=== PATIENT | female | born 1965 | race Caucasian/White ===

== ENCOUNTER 2023-02-16 10:39 | Outpatient (OUT) | payer BC, SELFPAY ==
[2023-02-16 11:17] LABS: Basophils Percent Auto 0.4 % (0.2-2.0); Eosinophils Absolute Auto 0.1 10^3/uL (0.0-0.7); Eosinophils Percent Auto 1.5 % (0.9-7.0); Hematocrit 39.9 % (36.0-48.0); Hemoglobin 13.3 g/dL (12.0-16.0); Immature Granulocytes Abs Auto 0.01 10^3/uL (0.00-0.03); Immature Granulocytes Pct Auto 0.2 % (0.0-0.5); Lymphocytes Absolute Auto 2.2 10^3/uL (1.2-3.8); Lymphocytes Percent Auto 46.5 % (20.5-60.0); Mean Corpuscular HGB Conc 33.3 g/dL (29.9-35.2); Mean Corpuscular Hemoglobin 31.1 pg (26.7-34.0); Mean Corpuscular Volume 93.4 fL (81.0-99.0); Monocytes Absolute Auto 0.3 10^3/uL (0.3-0.8); Monocytes Percent Auto 5.9 % (1.7-12.0); Neutrophils Absolute Auto 2.2 10^3/uL (1.4-6.5); Neutrophils Percent Auto 45.5 % (43.0-75.0); Platelet Count 182 10^3/uL (150-450); Red Blood Count 4.27 10^6/uL (4.20-5.40); Red Cell Distribution Width 12.7 % (11.0-15.0); White Blood Count 4.8 10^3/uL (4.0-11.0)
[2023-02-16 11:32] LABS: Estimated Average Glucose 114 mg/dL; Glycohemoglobin A1C 5.6 % (4.5-6.2)
[2023-02-16 12:15] LABS: Alanine Aminotransferase 22 U/L (14-59); Albumin Globulin Ratio 1.2; Alkaline Phosphatase 88 U/L (46-116); Aspartate Amino Transferase 16 U/L (15-37); BUN Creatinine Ratio 15.4; Bilirubin Total 0.4 mg/dL (0.2-1.0); Calcium 9.1 mg/dL (8.5-10.1); Carbon Dioxide 28.6 mmol/L (21.0-32.0); Chloride 105 mmol/L (98-107); Chol HDL Ratio 2.9; Cholesterol 235 mg/dL (<=200); Estimated GFR (African America >60 (>=60); Estimated GFR (Non-African Ame >60 (>=60); Free T3 2.39 pg/mL (2.18-3.98); Globulin 3.3 g/dL; Glucose 98 mg/dL (74-106); HDL Cholesterol 82 mg/dL (40-60); Potassium 4.6 mmol/L (3.5-5.1); Sodium 141 mmol/L (136-145); Thyroid Stimulating Hormone 1.231 uIU/mL (0.358-3.740); Total Protein 7.3 g/dL (6.4-8.2); Triglycerides 75 mg/dL (<=150)
== END 2023-02-16 10:40 | disposition home or self-care (01) ==
PROVIDERS: Visit Provider Family Medicine
DX: Z00.00 Encounter for general adult medical examination without abnormal findings (principal)
CPT/HCPCS: 36415; 80053; 80061; 83036; 83540; 84436; 84443; 84481; 85025

== ENCOUNTER 2023-04-17 13:39 | Outpatient (OUT) | payer BC, SELFPAY | END 2023-04-17 13:40 | disposition home or self-care (01) | LOC: PST 13:40 | PROVIDERS: Visit Provider Surgery | DX: Z01.818 Encounter for other preprocedural examination (principal); Z12.11 Encounter for screening for malignant neoplasm of colon ==

== ENCOUNTER 2023-04-25 07:27 | Day surgery (SDC) | payer BC, SELFPAY ==
--- NOTE | 2023-04-25 | OP_ITS ---
OPERATION DATE: ??04/25/2023 PREOPERATIVE DIAGNOSIS:? Colorectal screening. POSTOPERATIVE DIAGNOSIS:? Normal colonoscopy to cecum. PROCEDURE:? Colonoscopy to cecum. SURGEON:? Taurus Bridges M.D. ANESTHESIA:? Monitored anesthesia care. ESTIMATED BLOOD LOSS:? Zero. INDICATIONS AND CONSENT:? Patient is a 57-year-old female presents for colorectal screening.? Indications, risks, benefits, alternatives of proceeding with colonoscopy were explained extensively to the patient, including the risks of bleeding, colon perforation or anesthetic complications.? All of her questions were answered.? Informed consent was obtained. PROCEDURE:? Patient brought to the operating room, placed in the left lateral decubitus position.? Monitored anesthesia care was provided.? Rectal exam was performed which showed no masses or blood.? The scope was inserted into the anal canal.? Under direct visualization was advanced.? With the aid of abdominal compression, it was advanced to the cecum where cecal markings were clearly identified.? There was noted to be a good prep.? Upon withdrawal of the scope, mucosal surfaces were carefully examined.? There were no mass lesions or polyps.? No inflammatory changes or ulcerations.? No significant diverticulosis.? The scope was retroflexed in the anal canal.? There was no significant hemorrhoidal disease.? Scope was then withdrawn.? Patient tolerated procedure well, was sent to recovery room in good condition. Follow up colonoscopy should be in 10 years for screening. CC:? Ron Flynn M.D. MTDLuz
[2023-04-25 07:40] VITALS: BP 107/48; PULSE 78; RESP 16; TEMP 36.4; O2SAT 97; BMI 22.9
[2023-04-25] MEDS: LACTATED RINGER'S SOLUTION 1,000 ML 50 ML IV (07:47)
[2023-04-25 08:25] VITALS: BP 99/59; PULSE 71; RESP 14; TEMP 35.9; O2SAT 99
[2023-04-25 08:40] VITALS: BP 98/56; PULSE 70; RESP 16; O2SAT 97
[2023-04-25] MEDS: ONDANSETRON PF 4 MG/2 ML VIAL IV (08:43)
--- NOTE | 2023-04-25 08:50 | PC.NURSE ---
pt reports nausea at this time, notified,order received for 4mg IV zofran. will administer once pharmacy verifies order.
--- NOTE | 2023-04-25 08:51 | PC.NURSE ---
4mg IV zofran given at 0843 for nausea per order.
[2023-04-25 08:55] VITALS: BP 106/70; PULSE 72; RESP 16; O2SAT 99
== END 2023-04-25 09:10 | disposition home or self-care (01) ==
PROVIDERS: PCP Family Medicine; Visit Provider Surgery
PROC: (CPT 45378; principal; 2023-04-25 08:30)
DX: Z12.11 Encounter for screening for malignant neoplasm of colon (principal); M85.80 Other specified disorders of bone density and structure, unspecified site; D89.89 Other specified disorders involving the immune mechanism, not elsewhere classified
CPT/HCPCS: 45378; J2704

== ENCOUNTER 2025-07-29 08:02 | Outpatient (OUT) | payer BC, SELFPAY ==
--- OUTSIDE RECORDS SUMMARY | 2025-07-15 08:30 | XMS_ITS ---
Author Organization [facility] [place] Address [address] [place] [address] Care Team Providers Care Gas Main Fitter Name Role Phone David Flynn Primary Care Provider Allergies No Known Allergies REASON FOR VISIT ANNUAL Social History Tobacco Use: Social History Observation Description Date Details (start date - stop date) Never Smoker NA - NA Tobacco Use/Smoking Question Answer Notes Patient is a nonsmoker AUDIT-C (Standard) Question Answer Notes Did you have a drink containing alcohol in the p ast year? Yes How often did you have a drink containing alcohol in the past year?Never (0 point)How many drinks did you have on a typical day when you were drinking in the past year?1 or 2 drinks (0 point)How often did you have six or more drinks on one occasion in the past year?2 to 4 times a month (2 points)Points2 InterpretationNegative Problems Problem Type SNOMED Code ICD Code Onset Dates Problem Status W/U Status Risk Notes Problem Scoliosis (179545838) Scoliosis (M41.9) Activeconfirmed Vital Signs Weight 138.0 lbs 07/15/2025 Height 62 in 07/15/2025 Blood pressure systolic 118 mm Hg 07/15/20 25 Blood pressure diastolic 72 mm Hg 025 BMI 25.24 kg/m2 07/15/2025 Encounters Encounter Location Date Provider Diagnosis [facility] [address] [place] [address] 07/15/2025 David Fylnn Well adult Z00.00 an d Scoliosis M41.9 Assessments Encounter Date Diagnosis (ICD Code) Assessment Notes Treatment Notes Treatment Clinical Notes Section Notes 07/15/2025 Well adult (ICD-10 - Z00.00) 07/15/2025Scoliosis (ICD-10 - M41.9) Plan Of Treatment Pending Test Test Name Order Date HEMOGLOBIN A1C (GLYCO) 07/15/2025 IRON, TOTAL 07/15/2025 LIPID PANEL (CHOL/TRIG/HDL/LDL) 07/15/20 25 XR DEXA BONE DENSITY 07/15/2025 XR LSPINE MIN 4 VIEWS 07/15/2025 THYROID PANEL (T4/TSH/FREE T3) 5 MM screening mammo BI 07/15/2025 XR thoracic spine 3V 07/15/2025 CMP (COMP MET GREEN) w/eGFR CKD-EPI 2024 CBC WITH DIFF 07/15/2025 Progress Notes * Jia BREWSTER LDOB:1964 (60 yo F)Acc No.[id number]:07/15/2025 Progress Note Patient: Jia HERNANDEZ :?Ron Flynn ([facility]), MDDOB:1965???Age: 60 Y???Sex:FemaleDate:07/15/2025Phone:[phone]:[address] [place], [place]Check In:01:18 PM ESTCheck Out:02:09 PM EST Subjective: * Chief Complaints: * A NNUAL * HPI: ???General:? arthritis acting up from time to time feels better after moenpause actually Has bowle and bladder prolapse. * ROS: ???EENT:?hearing changes?denies.?visual changes?denies. non-healing mouth sores?denies.?swollen glands or neck lumps?denies.?hoarseness?denies.?sore throat?denies.?difficulty swallowing?denies.?nose bleeds?denies.?nasal congestion?denies.?ear ache?denies.?ear discharge denies.?ringing in ears?denies.?light sensitivity?denies.?eye pain?denies.?blurring?denies.?eye irritation?denies.?double vision?denies. vision loss?denies.?General/Constitutional:?Sweats:?Denies.?Fatigue?denies.?Sleep proble ms?denies.?Anorexia?denies.?Malaise?denies.?Weight loss?denies. Fatigue or Weakness?denies.?Fever or Chills?denies.?Cardiovascular:?Shortness of Breath w/lying flat?denies.?Lightheadedne ss/dizziness?denies.?Chest tightness/ heavy pressure?denies.?Swelling of legs, a nkles, or feet?denies.?Waking up with shortness of breath?denies.?Chest pain&#16 0;denies.?Palpitations?denies.?Weight gain?denies.?Respiratory:?Chronic or frequent cough?denies.?Coughing up blood&#1 60;denies.?Difficulty breathing?denies.?Productive cough?denies.?Snoring&#1 60;denies.?Shortness of breath that awakens from sleep (PND)?denies.?Chest pain? denies.?Sputum production?denies.?Wheezing?denies.?Musculoskeletal:?Joint pain?denies.?Joint Fluid?denies.?Backpain?denies.?Knee pain?denies.?Neck pain?denies.?Joint Stiffness?denies.?Muscle cramps?denies.?Weakness of muscles?denies.?Arthritis?denies.?Muscle aches?denies.?Pain in shoulder(s)?denies.?Swollen joints?denies.? * Active Problem List M85.80 Osteopenia Modified On:02/08/2023W/U Status:sxdultyvzY16.8Varicose vein Modified On:02/08/2023/U Status:ivdieslctT70.89Autoimmune disease Modified On:06/29/2023W/U Status:dcnhkjngfK35.00Well adult Modified On:11/01/2023W/U Status:ofucfugfuK15.1COVID-19 Modified On:04/09/2023W/U Status:rtievbwtgR62.90Acute sinus infection Modified On:11/22/2023W/U Status:yaihwjdetO57.9Scoliosis Modified On:07/15/2025W/U Status:confirmed * Medical History: * Surgical History: L ipoma on right leg and left hip * Hospitalization/Major Diagno stic Procedure: D enies Past Hospitalization * Family History: F ather: alive, Non Hodgkins lymphoma, Pacemaker. M other: alive, neuropathy, diagnosed with Diabetes. M aternal uncle: alive, colon cancer, diagnosed with Cancer. * Social History: ???Tobacco Use:?Tobacco Use/Smoking?Patient is a?nonsmoker ???Drug/Alcohol:?AUDIT-C (Standard)?Did you have a drink containing alcohol in the past year??Yes ?How often did you have a drink containing alcohol in the past year?? Never (0 point) ?How many drinks did you have on a typical daywhen you were drinking in the past year??1 or 2 drinks (0 point) ?How often did you have six or more drinks on one occasion in the past year??2 to 4 times a month (2 points) ?Points?2 ?Interpretation?Negative * Medications: D iscontinuedlevoFLOXacin 500 MG Tablet 1 tablet Orally Once a day Medication List reviewed and reconciled with the patientDiscontinued levoFLOXacin 500 MG Tablet 1 tablet Orally Once a day Medication List reviewed and reconciled with the patient * Allergies: N .K.D.A.no[Allergies Verified] Objective: * Vitals: W t:138.0lbs, Ht: 62 in, BP:118/72mm Hg, BMI:25.24Index, Ht-cm: 157.48 cm, Wt-k.6 kg. * Examination: ???Physical Exam: ?GENERAL:?well developed, well nourished, in no acute distress.?HEAD:?normocephalic/atraumatic.?EYES:?pupils equal, round and reactive to light, conjunctivae and sclerae normal.?EARS:?no deformity or lesion of external ear, canals and TM appear normal bilaterally, TM's intact, not inflamed with normal light reflex, hearing grossly normal to conversational speech.?NOSE:?no deformity, discharge, inflammation, or lesions. ?MOUTH:?mucous membranes moist, normal oropharynx and posterior pharynx without lesions or exudates, tongue normal, dentition normal.?NECK:?neck supple, no masses or palpable cervical nodes, trachea midline, thyroid without nodules, masses, tenderness, or enlargement.?CHEST:?no chest wall deformity, no chest wall tenderness. ?LUNGS:?normal respiratory effort and clear to auscultation, no wheezes, rales, or rhonchi, good air exchange.?CARDIO:?regular rate and rhythm, normal S1 and S2, nor murmur, rub, or gallop.?PULSES:?normal capillary refill.?ABDOMEN:?soft, non-distended, non-tender, no masses.?MUSCULOSKELETAL:?no deformity or scoliosis noted, normal range of motion, joints normal, no erythema, edema, effusion, or ecchymosis.?EXTREMITY:?no clubbing, cyanosis, edema, or deformity withnormal ROM in both upper and lower bilateral extremities.?NEUROLOGIC:?grossly normal.?SKIN:?no rashes, ulcerations, or suspicious lesions.?LYMPH NODES:?no cervical adenopathy, nodes normal.?MENTAL STATUS:?alert and oriented x3, normal mood and affect.? Assessment: * Assessment: 1.?Well adult - Z00.00 (Primary)???2.?Scoliosis - M41.9??? Plan: * Treatment: ?LAB: HEMOGLOBIN A1C (GLYCO) ?LAB: IRON, TOTAL ?LAB: LIPID PANEL (CHOL/TRIG/HDL/LDL) ?LAB: THYROID PANEL (T4/TSH/FREE T3) ?LAB: CMP (COMP MET GREEN) w/eGFR CKD-EPI ?LAB: CBC WITH DIFF ?Imaging: XR DEXA BONE DENSITY ?Imaging: XR LSPINE MIN 4 VIEWS ?Imaging: MM screening mammo BI ?Imaging: XR thoracic spine 3V * Procedure Codes: * Preventive Medicine: ??Screenings/Counseling:?BMI ACTION PLAN?Above Normal BMI Follow-up?Dietary management education, guidance, and counseling * * Sign off status: CompletedVisit Status:?CHK (Check Out) true * Provider: Luz Flynn (TTC)MD Date: 09/15/2024 Generated for Printing/Faxing/eTransmitting on:?07/29/2025 08:04 AM EST History and Physical Notes * HPI (History of Present Illness) CategorySub-CategoryDetailNotesCategory NotesGeneral arthritis acting up from time to time feels better after moenpause actually Has bowle and bladder prolapse Examination CategorySub-CategoryDetailNotesCategory NotesPhysical ExamGENERAL:well developed, well nourished, in no acute distressHEAD:normocephalic/atraumatic EYES:pupils equal, round and reactive to light, conjunctivae and sclerae normal EARS:no deformity or lesion of external ear, canals and TM appear normal bilaterally, TM's intact, not inflamed with normal light reflex, hearing grossly normal to conversational speechNOSE:no deformity, discharge, inflammation, or lesionsMOUTH:mucous membranes moist, normal oropharynx and posterior pharynx without lesions or exudates, tonguenormal, dentition normalNECK:neck supple, no masses or palpable cervical nodes, trachea midline, thyroid without nodules, masses, tenderness, or enlargementCHEST:no chest wall deformity, no chest wall tendernessLUNGS:normal respiratory effort and clear to auscultation, no wheezes, rales, or rhonchi, good air exchangeCARDIO:regular rate and rhythm, normal S1 and S2, nor murmur, rub, or gallopPULSES:normal capillary refillABDOMEN:soft, non-distended, non-tender, no massesRECTAL:MUSCULOSKELETAL:no deformity or scoliosis noted, normal range of motion, joints normal, no erythema, edema, effusion, or ecchymosisEXTREMITY:no clubbing, cyanosis, edema, or deformity with normal ROM in both upper and lower bilateral extremitiesNEUROLOGIC:grossly normalSKIN:no rashes, ulcerations, or suspicious lesionsLYMPH NODES:no cervical adenopathy, nodes normalMENTAL STATUS:alert and oriented x3, normal mood and affect
--- OUTSIDE RECORDS SUMMARY | 2025-07-20 15:00 | XMS_ITS | Encounter Summary ---
Author Organization [facility] Address [address] [place] [address] Care Team Providers Care Rate Clerk Passenger Name Role Phone Ron Flynn MD Primary Care Provider [phone] Encounter Details DateTypeDepartmentCare Team (Latest Contact Info)Logmmwmowrd90/08/2025 3:00 PM ESTOffice Visit [facility] [place] [facility] [address] [facility] [address] [place] [address] Bryant Cho MD [address] [facility] [address] [place] [address] Well woman exam with routine gynecological exam (Primary Dx); Cervical cancer screening; Screening for HPV (human papillomavirus); Other screening mammogram; Cystocele with uterine descensus; Rectocele; HERBERT (stress urinary incontinence, female) Social History Tobacco UseTypesPacks/DayYears UsedDateSmoking Tobacco: NeverSmokeless Tobacco: NeverAlcohol UseStandard Drinks/WeekCommentsYes2 (1 standard drink = 0.6 oz pure alcohol)CommentsNoSex and Gender InformationValueDate RecordedSex Assigned at BirthNot on fileLegal AclOjsykr14/15/2023 6:48 PM EDTGender Identity Jarwlu8310/25/2022 6:48 PM EDTSexual OrientationNot on filedocumented as of this encounter Last Filed Vital Signs Vital SignReadingTime TakenCommentsBlood Eqwetcta499/7607/20/2025 3:06 PM EST Pulse--Temperature--Respiratory Rate--Oxygen Saturation--Inhaled Oxygen Concentration--Ealplj69.1 kg (137 lb)07/20/2025 3:06 PM ESTHeight--Body Mass Index25.0607/10/2022 12:00 PM ESTdocumented in this encounter Progress Notes * Bryant Cho MD - 07/20/2025 3:00 PM EST Images from the original note were not included. Bryant Cho MD Obstetrics and Gynecology Patient: Jia Finch, : 1965 (60 y.o.) DOS 07/20/2025 Exam Date: 07/20/2025 HPI: Yearly She has a uterine prolapse with cystorectocoel and EHRBERT. She is using pessary with satisfaction, butshe finds it tedious and the discharge is bothersome Visit Vitals BP 120/76 Wt 137 lb BMI 25.06 kg/m?? OB Status Postmenopausal Smoking Status Never BSA 1.65 m?? OB History Para Term AB Living 2 2 2 0 0 2 SAB IAB Ectopic Multiple Live Births 0 0 0 0 2 # Outcome Date GA Lbr Mick/2nd Weight Sex Type Anes PTL Lv 2 Term 1 Term Obstetric Comments Pap: 07/04-Neg SANCHEZ: HPV Neg Mammo: 07/16/24-Neg ([facility]) Menopausal Medication and Allergies Medication Documentation Review Audit Reviewed by Jazmine Dockery MA (Bleaching Machine Operator) on 07/20/25 at 1508 Medication Order Taking? Sig Documenting Provider Last Dose Status Discontinued 07/20/25 1508 Multiple Vitamins-Minerals (multivitamin with minerals) tablet [id number] Take 1 tablet by mouth Daily Active Discontinued 07/20/25 1508 No Known Allergies Past Medical History: Diagnosis Date Autoimmune disease (HCC) COVID Lipoma Past Surgical History: Procedure Laterality Date LIPOMA RESECTION N/A thigh and hip VAGINAL DELIVERY VAGINAL DELIVERY Physical Exam: Objective Physical Exam Constitutional: Appearance: Normal appearance. Genitourinary: Vulva normal. No vaginal discharge or bleeding. Anterior and posterior vaginal prolapse present. Mild vaginal atrophy present. Right Adnexa: not palpable. Left Adnexa: not palpable. No cervical lesion. Uterus is prolapsed. Uterus is not enlarged or tender. Breasts: Right: Normal. Left: Normal. Pulmonary: Effort: Pulmonary effort is normal. Abdominal: Palpations: Abdomen is soft. Neurological: Mental Status: She is alert. Assessment/Plan ICD-10-CM 1. Well woman exam with routine gynecological exam Z01.419 2. Cervical cancer screening Z12.4 IGP, APT HPV,RFX 16/18,45 3. Screening for HPV (human papillomavirus) Z11.51 IGP, APT HPV,RFX 16/18,45 4. Other screening mammogram Z12.31 Bilateral screening mammogram with tomosynthesis 5. Cystocele with uterine descensus N81.4 6. Rectocele N81.6 7. HERBERT (stress urinary incontinence, female) N39.3 We discussed surgical options. If she opts for surgery, she will need TLH/BSO/A+P repair/TVT-o/cystoscopy SHE will consider Orders Placed This Encounter Procedures Bilateral screening mammogram with tomosynthesis U/S and spot compression if indicated Standing Status: Future Expected Date: 07/20/2025 Expiration Date: 09/20/2026 Reason for exam:: screen Is the patient ?: No IGP, APT HPV,RFX 16/18,45 Print requisition?: Yes documented in this encounter Plan of Treatment DateTypeDepartmentCare Team (Latest Contact Info)Vmltnavency38/14/2026 3:00 PM ESTOffice Visit [facility] [address] [place] [address] Bryant Cho MD [address] [place] [address] 07/26/2026 3:30 PM ESTAncillary Procedure [facility] [address] [place] [phone] NameTypePriorityAssociated DiagnosesOrder ScheduleBilateral screening mammogram with tomosynthesisImagingRoutine Other screening mammogram Expected: 07/20/2025, Expires: 09/20/2026documented as of this encounter Procedures Procedure NamePriorityDate/TimeAssociated DiagnosisCommentsIGP, APT HPV,RFX 16/18,25Cogsgqg32/08/2025 12:00 AM EST Cervical cancer screening Screening for HPV (human papillomavirus) documented in this encounter Results * IGP, APT HPV,RFX 16/18,45 (07/20/2025 12:00 AM EST)ComponentValueRef RangeTest MethodAnalysis TimePerformed AtPathologist SignatureDiagnosis:CommentLABCORP Comment:NEGATIVE FOR INTRAEPITHELIAL LESION OR MALIGNANCY.Specimen Adequacy: CommentLABCORPComment: Satisfactory for evaluation. ??Endocervical and/or squamous metaplastic cells (endocervical component) are present. Clinician Provided ICD10:CommentLABCORPComment: Z12.4 Z11.51 Performed By:CommentLABCORPComment:Martine Briseno, Diesel Engine Specialist ([facility])Cyto Comments.LABCORPNote:CommentLABCORPComment: The Pap smear is a screening test designed to aid in the detection of premalignant and malignant conditions of the uterine cervix. ??It is not a diagnostic procedure and should not be used as the sole means of detecting cervical cancer. ??Both false-positive and false-negative reports do occur. Test Methodology:CommentLABCORPComment: This liquid based ThinPrep(R) pap test was interpreted using the Scality(R) Genius(TM) Cervical Algorithm whole slide imaging system. HPV AptimaNegativeNegativeLABCORPComment: This nucleic acid amplification test detects fourteen high-risk HPV types (16,18,31,33,35,39,45,51,52,56,58,59,66,68) without differentiation. Specimen (Source)Anatomical Location / LateralityCollection Method / Volume Collection TimeReceived TimeVaginal Fluid Narrative [facility] - 07/22/2025 1:07 PM EST Performed at: 01 - [address] ??[id number] Pc Tech: Jossy Pandey MD, Phone: ??[phone] Performed at: ??02 - [address] ??[id number] Pc Tech: Jossy Pandey MD, Phone: ??[phone] Specimen Comment: No. of containers..01 ThinPrep Vial Authorizing ProviderResult TypeResult StatusBryant Cho MDLAB BLOOD ORDERABLESFinal ResultPerforming OrganizationAddressCity/State/ZIP CodePhone Number [facility] documented in this encounter Visit Diagnoses Diagnosis Well woman exam with routine gynecological exam- Primary Routine gynecological examination Cervical cancer screening Screening for malignant neoplasm of the cervix Screening for HPV (human papillomavirus) Special screening examination for human papillomavirus (HPV) Other screening mammogram Cystocele with uterine descensus Rectocele HERBERT (stress urinary incontinence, female) documented in this encounter Care Teams Team MemberRelationshipSpecialtyStart DateEnd Date Ron Flynn MD [address] [place] [address] PCP - GeneralFamily Medicine03/07/23documented as of this encounter
--- OUTSIDE RECORDS SUMMARY | 2025-07-20 15:30 | XMS_ITS | Encounter Summary ---
Author Organization [facility] Address [address] [place] [address] Care Team Providers Care Casino Cage Cashier Name Role Phone Ron Flynn MD Primary Care Provider [phone] Encounter Details DateTypeDepartmentCare Team (Latest Contact Info)Mplzwfhkero30/08/2025 3:30 PM ESTAncillary Procedure [facility] [address] [place] [address] Other screening mammogram Social History Tobacco UseTypesPacks/DayYears UsedDateSmoking Tobacco: NeverSmokeless Tobacco: NeverAlcohol UseStandard Drinks/WeekCommentsYes2 (1 standard drink = 0.6 oz pure alcohol)CommentsNoSex and Gender InformationValueDate RecordedSex Assigned at BirthNot on fileLegal JizOhqzan83/15/2023 6:48 PM EDTGender Identity Sldwjs6410/25/2022 6:48 PM EDTSexual OrientationNot on filedocumented as of this encounter Plan of Treatment DateTypeDepartmentCare Team (Latest Contact Info)Ugfozrwuqox10/14/2026 3:00 PM ESTOffice Visit [facility] [address] [place] [address] Bryant Cho MD [address] [place] [address] 07/26/2026 3:30 PM ESTAncillary Procedure [facility] [address] [place] [address] documented as of this encounter Procedures Procedure NamePriorityDate/TimeAssociated DiagnosisCommentsBI MAMMOGRAM SCREENING TOMOSYNTHESIS OUCETSWWRSdyefbi67/08/2025 3:50 PM EST Other screening mammogram documented in this encounter Results * Bilateral screening mammogram with tomosynthesis (07/20/2025 3:50 PM EST) Anatomical RegionLateralityModalityBreastBilateralMammographySpecimen (Source) Anatomical Location / LateralityCollection Method / VolumeCollection Time Received Time07/20/2025 4:01 PM EST Impressions 07/20/2025 4:08 PM EST Impression: No specific evidence of malignancy seen in either breast. BIRADS 2 - Benign Findings DENSITY: There are scattered areas of fibroglandular density. FOLLOW-UP: Routine Screening Mammogram Board Certified Radiologists. ??Accredited by the ACR and FDA. MAMMOGRAPHY IS VERY IMPORTANT TO YOUR HEALTH. ??THE [employer] GUIDELINES RECOMMEND THAT WOMEN 40 YEARS OF AGE AND OLDER SHOULD HAVE A MAMMOGRAM EVERY YEAR. A REMINDER LETTER WILL BE SENT AT THE APPROPRIATE TIME. ?? ELECTRONICALLY SIGNED BY: Nicola Zuniga M.D. Narrative 07/20/2025 4:08 PM EST Examination: BI MAMMOGRAM SCREENING TOMOSYNTHESIS BILATERAL Clinical History: screen Technique: Screening digital mammography study of both breasts was performed with 2-D and 3-D tomosynthesis imaging. Study was compared to the prior exam dated 07/16/2024. Findings: There is no evidence of interval dominant spiculated mass, grouped microcalcifications, or skin thickening which would be suggestive of malignancy. ?? Mild scattered benign-appearing calcifications are seen on the left with a single benign-appearing calcification noted on the right. A few small benign- appearing asymmetric densities are noted bilaterally similar to the prior study. Partially visualized axillary lymph nodes are noted bilaterally and appear grossly unremarkable. Procedure Note Nicola Zuniga MD - 07/20/2025 Examination: BI MAMMOGRAM SCREENING TOMOSYNTHESIS BILATERAL Clinical History: screen Technique: Screening digital mammography study of both breasts wasperformed with 2-D and 3-D tomosynthesis imaging. Study was compared tothe prior exam dated 07/16/2024. Findings: There is no evidence of interval dominant spiculated mass,grouped microcalcifications, or skin thickening which would be suggestiveof malignancy. Mild scattered benign-appearing calcifications are seen on the left with asingle benign-appearing calcification noted on the right. A few smallbenign-appearing asymmetric densities are noted bilaterally similar to theprior study. Partially visualized axillary lymph nodes are notedbilaterally and appear grossly unremarkable. IMPRESSION: Impression: No specific evidence of malignancy seen in either breast. BIRADS 2 - Benign Findings DENSITY: There are scattered areas of fibroglandular density. FOLLOW-UP: Routine Screening Mammogram Board Certified Radiologists. Accredited by the ACR and FDA. MAMMOGRAPHY IS VERY IMPORTANT TO YOUR HEALTH. THE [employer] GUIDELINES RECOMMEND THAT WOMEN 40 YEARS OF AGE AND OLDER SHOULD HAVE AMAMMOGRAM EVERY YEAR. A REMINDER LETTER WILL BE SENT AT THE APPROPRIATE TIME. ELECTRONICALLY SIGNED BY: Nicola Zuniga M.D. Authorizing ProviderResult TypeResult StatusBrflorentin Cho MDIMG BI PROCEDURES Final Result documented in this encounter Visit Diagnoses Diagnosis Other screening mammogram documented in this encounter Care Teams Team MemberRelationshipSpecialtyStart DateEnd Date Ron Flynn MD [address] [place] [address] [phone] PCP - GeneralFamily Medicine03/07/23documented as of this encounter
--- NOTE | 2025-07-29 08:05 | XR_ITS ---
The [address] [address] Patient Name: TOMMY BREWSTER MRN: [id number] date: 1965 Sex: F Assigned Patient Location: [facility] Current Patient Location: [facility] Accession/Order Number: [id number] Exam Date: 07/29/2025 08:10 Report Date: 07/29/2025 09:34 At the request of: TIFFANI RICE MD Procedure: XR lumbar spine min 4V CLINICAL DATA: Back pain. History of scoliosis. THORACIC SPINE - 3 views COMPARISON: None AP, lateral and swimmer's views were obtained. There is reverse S-shaped thoracic scoliotic curvature. There is no evidence of compression fracture or displacement. The pedicles are intact. There is minimal endplate spurring. There are no paraspinal soft tissue abnormalities. XR/XR lumbar spine min 4V IMPRESSION: SCOLIOSIS AND MINIMAL DEGENERATIVE CHANGE. LUMBAR SPINE - 4 views COMPARISON: None AP, lateral and both oblique views were obtained. There is thoracolumbar dextroscoliotic curvature. No displacement is seen on the lateral view. There are no acute compression fractures. No disproportionate disc space narrowing is identified. There is a Schmorl's node at superior endplate of T12. There is minimal endplate spurring and mild facet disease. No pars defects are identified. SI joints are intact. No paraspinal soft tissue abnormalities are noted. IMPRESSION: SCOLIOSIS AND MINOR DEGENERATIVE CHANGE. NO ACUTE BONY FINDINGS. Impression dictated by: Jessica Neil M.D. 07/29/2025 9:34 AM Dictation Location: [facility] Electronically authenticated by: [id number] Y Date: 07/29/2025 09:34
--- NOTE | 2025-07-29 08:05 | XR_ITS ---
The [address] [address] Patient Name: TOMMY BREWSTER MRN: [id number] date: 1965 Sex: F Assigned Patient Location: [facility] Current Patient Location: [facility] Accession/Order Number: [id number] Exam Date: 07/29/2025 08:10 Report Date: 07/29/2025 09:34 At the request of: TIFFANI RICE MD Procedure: XR lumbar spine min 4V CLINICAL DATA: Back pain. History of scoliosis. THORACIC SPINE - 3 views COMPARISON: None AP, lateral and swimmer's views were obtained. There is reverse S-shaped thoracic scoliotic curvature. There is no evidence of compression fracture or displacement. The pedicles are intact. There is minimal endplate spurring. There are no paraspinal soft tissue abnormalities. XR/XR thoracic spine 3V IMPRESSION: SCOLIOSIS AND MINIMAL DEGENERATIVE CHANGE. LUMBAR SPINE - 4 views COMPARISON: None AP, lateral and both oblique views were obtained. There is thoracolumbar dextroscoliotic curvature. No displacement is seen on the lateral view. There are no acute compression fractures. No disproportionate disc space narrowing is identified. There is a Schmorl's node at superior endplate of T12. There is minimal endplate spurring and mild facet disease. No pars defects are identified. SI joints are intact. No paraspinal soft tissue abnormalities are noted. IMPRESSION: SCOLIOSIS AND MINOR DEGENERATIVE CHANGE. NO ACUTE BONY FINDINGS. Impression dictated by: Jessica Neil M.D. 07/29/2025 9:34 AM Dictation Location: [facility] Electronically authenticated by: [id number] Y Date: 07/29/2025 09:34
--- OUTSIDE RECORDS SUMMARY | 2025-07-29 08:05 | XMS_ITS | Encounter Summary ---
Author Organization [facility] Address [address] [place] [address] Care Team Providers Care Allergy Physician Name Role Phone Ron Flynn MD Primary Care Provider [phone] Encounter Details DateTypeDepartmentCare Team (Latest Contact Info)Tqynvjprfuw47/04/2025Travel Social History Tobacco UseTypesPacks/DayYears UsedDateSmoking Tobacco: NeverSmokeless Tobacco: NeverAlcohol UseStandard Drinks/WeekCommentsYes2 (1 standard drink = 0.6 oz pure alcohol)CommentsNoSex and Gender InformationValueDate RecordedSex Assigned at BirthNot on fileLegal PezCzvzxq09/15/2023 6:48 PM EDTGender Identity Bfjhux4010/25/2022 6:48 PM EDTSexual OrientationNot on filedocumented as of this encounter Plan of Treatment DateTypeDepartmentCare Team (Latest Contact Info)Vsvppobxcer14/14/2026 3:00 PM ESTOffice Visit [facility] [address] [place] [address] Bryant Cho MD [address] [facility] [place] [address] 07/26/2026 3:30 PM ESTAncillary Procedure [facility] [address] [place] [address] documented as of this encounter Visit Diagnoses Not on filedocumented in this encounter Care Teams Team MemberRelationshipSpecialtyStart DateEnd Date Ron Flynn MD [address] [place] [phone] PCP - GeneralFamily Medicine03/07/23documented as of this encounter
--- OUTSIDE RECORDS SUMMARY | 2025-07-29 08:05 | XMS_ITS | Clinical Summary ---
Author Organization [facility] Address [address] [place], [place] [address] Care Team Providers Care Child Care Center Administrator Name Role Phone Ron Flynn MD Primary Care Provider [phone] Social History Tobacco UseTypesPacks/DayYears UsedDateSmoking Tobacco: Never Assessed CommentsUnknownSex and Gender InformationValueDate RecordedSex Assigned at Not on fileLegal PcpIyyxkz11/02/2012 8:15 AM ESTGender IdentityNot on fileSexual OrientationNot on file Plan of Treatment Health MaintenanceDue DateLast DoneCommentsAnxiety Vpraggigp74/07/1983Depression Gdwbjqkxz19/07/1983HIV Qyqnmnowr91/07/1983Hepatitis C Kpvgvcpre23/07/1983 DTaP,Tdap,Td Vaccine (1 - Tdap)1984Cervical Cancer Doihpqlip26/07/1986 Mammogram Ozecgsnrb21/07/2005CT Gcirfpkepqdd82/07/2010Cologuard (FIT-DNA) 05/19/20109493Kizoxlyogqo89/07/2010Colorectal Cancer Drpwivxwt61/07/2010Diabetes Etwdhlukp85/07/2010Fecal Occult Blood2010Lipid Xccgjwqzr41/07/2010 Qmnqyjgokkmkq54/07/2010Pneumococcal Vaccine: 50+ (1 of 1 - PCV)2015 Shingrix Vaccine (1 of 2)2015Covid-19 Vaccine (1 - season) 2025Influenza Vaccine (#1)2025RSV Vaccine (1 - 1-dose 75+ series) 2040 Care Teams Team MemberRelationshipSpecialtyStart DateEnd Ron Flynn MD [facility] - [facility]03/25/08
--- OUTSIDE RECORDS SUMMARY | 2025-07-29 08:05 | XMS_ITS | Patient Health Record ---
Author Organization The [facility] [place] Address [address] [place] [address] Care Team Providers Care Membership Assistant Name Role Phone David Flynn Primary Care Provider Allergies No Known Allergies Reason For Referral No Information Social History Tobacco Use: Social History Observation [...] Problem Status W/U Status Risk Notes Problem Osteopenia (776637357) Osteopenia (M85.80 ) ActiveconfirmedProblemVaricose vein (66571151)Varicose vein (I86.8)Active confirmedProblemWell adult (828177247)Well adult (Z00.00)ActiveconfirmedProblem Scoliosis (587702131)Scoliosis (M41.9)ActiveconfirmedProblemAcute sinusitis (54261878)Acute sinus infection (J01.90)ActiveconfirmedProblemAutoimmune disease (26774949)Autoimmune disease (D89.89)ActiveconfirmedProblemCOVID-19 (515685366) COVID-19 (U07.1)Activeconfirmed Vital Signs Blood pressure diastolic 72 mm Hg 07/15/2025 Jivgjt45 in07/15/2025lood pressure uxccrjom266 mm Hg07/15/20256485Nyfdoc507.0 lbs 07/15/2025BMI25.24 kg/m207/15/2025 Encounters Encounter Location Date Provider Diagnosis [facility] [address] [place] [address] 07/15/2025 David Flynn Well adult Z00.00 an d Scoliosis M41.9 Assessments Encounter Date Diagnosis (ICD Code) Assessment Notes Treatment Notes Treatment Clinical Notes Section Notes 07/15/2025 Well adult (ICD-10 - Z00.00) 07/15/2025Scoliosis (ICD-10 - M41.9) Plan Of Treatment Pending Test Test Name Order Date CMP (COMPLETE METABOLIC PANEL) 3 HEMOGLOBIN A1C (GLYCO) 07/15/2025 HEMOGLOBIN A1C (GLYCO) 02/09/2023 IRON, TOTAL 07/15/2025 IRON, TOTAL 02/09/2023 LIPID PANEL (CHOL/TRIG/HDL/LDL) 02/10/20 23 LIPID PANEL (CHOL/TRIG/HDL/LDL) 07/15/20 25 CBC WITH DIFF (EXP 06/2025) 02/09/2023 XR DEXA BONE DENSITY 07/15/2025 XR LSPINE MIN 4 VIEWS 07/15/2025 THYROID PANEL (T4/TSH/FREE T3) 3 THYROID PANEL (T4/TSH/FREE T3) 5 MM screening mammo BI 07/15/2025 XR thoracic spine 3V 07/15/2025 CMP (COMP MET GREEN) w/eGFR CKD-EPI 2024 CBC WITH DIFF 07/15/2025 Insurance Providers Payer Name Payer Address Payer Phone Subscriber Number Group Number Insured Name Patient Relationship to Insured Coverage Start Date Coverage End Date [employer] ACCESS PPO PLUS LOCAL PLAN [address] [place] [phone] [id number] Blair Finch Spouse - patient is the spouse of the insured Medical (General) History Medical History History ICD Code Zoster without complications B02.9 Erythema nodosum L52 Varicose vein I86.8 Autoimmune disease D89.89 Osteopenia M85.80 Shingles B02.9 Erythema nodosum L52 Surgical History Surgery Date(Month/Year) Lipoma on right leg and left hip
--- OUTSIDE RECORDS SUMMARY | 2025-07-29 08:05 | XMS_ITS | Clinical Summary ---
Author Organization [facility] Address [address] [place] [address] Care Team Providers Care Educational Aid Name Role Phone Ron Flynn MD Primary Care Provider [phone] Allergies No known active allergies Medications MedicationSigDispense QuantityRefillsLast FilledStart DateEnd DateStatus Multiple Vitamins-Minerals (multivitamin with minerals) tablet Take 1 tablet by mouth DailyActive predniSONE (Deltasone) 10 MG tablet Indications:Sacroiliac strain, initial encounter1 po tid with food x 5 days 15 tablet Discontinued(Therapy completed) cyclobenzaprine (Flexeril) 10 MG tablet Indications:Sacroiliac strain, initial encounterTake 1 tablet (10 mg) by mouth 3 (three) times a day as needed for muscle spasms for up to 4 days 12 tablet Discontinued(Therapy completed) Active Problems ProblemNoted DateDiagnosed DateAutoimmune wovtkgm6104/26/2025aden-Walker grade 2 qmmictotv69/14/2025Female ogssjnlcc41/14/2025Uterine swulyxgx55/14/2025 Encounters DateTypeDepartmentCare NieaOefprvoashw07/08/2025 3:30 PM ESTAncillary Procedure [facility] [address] [place] [address] Other screening lctllfoss64/08/2025 3:00 PM ESTOffice Visit [facility] [address] [place] [address] Bryant Cho MD Well woman exam with routine gynecological exam (Primary Dx); Cervical cancer screening; Screening for HPV (human papillomavirus); Other screening mammogram; Cystocele with uterine descensus; Rectocele; HERBERT (stress urinary incontinence, female)07/20/2025amboo flowsheet [facility] [address] [place] [address] Bryant Cho MD 07/20/20259331Rdwnkx90/04/3419Hrxzdz20/01/2025Telephone [facility] [address] [place] [address] Bryant Cho MD from Last 3 Months Family History RelationNameStatusCommentsFatherAliveMotherAlive Social History Tobacco UseTypesPacks/DayYears UsedDateSmoking Tobacco: NeverSmokeless Tobacco: Never Tobacco Cessation:Counseling Given: Not Answered Alcohol UseStandard Drinks/WeekCommentsYes2 (1 standard drink = 0.6 oz pure alcohol)CommentsNoSex and Gender InformationValueDate RecordedSex Assigned at BirthNot on fileLegal FcuSkfwun02/15/2023 6:48 PM EDTGender Identity Oojupz5410/25/2022 6:48 PM EDTSexual OrientationNot on file Last Filed Vital Signs Vital SignReadingTime TakenCommentsBlood Fijxhmuv642/7607/20/2025 3:06 PM EST Cgacj712604/26/2025 12:35 PM QMTGffxjtnkich61.7 ??C (98 ??F)04/26/2025 12:35 PM EDTRespiratory Rate--Oxygen Fflslkfecw55%04/26/2025 12:35 PM EDTInhaled Oxygen Concentration--Zztlkj63.1 kg (137 lb)07/20/2025 3:06 PM KWNAuecat229.5 cm (5' 2 )07/10/2022 12:00 PM ESTBody Mass Index25.0607/10/2022 12:00 PM EST Plan of Treatment DateTypeDepartmentCare Team (Latest Contact Info)Qrvpvwduzrs64/14/2026 3:00 PM ESTOffice Visit [facility] [address] [place] [address] Bryant Cho MD [address] [place] [address] 07/26/2026 3:30 PM ESTAncillary Procedure [facility] [address] [place] [address] Health MaintenanceDue DateLast DoneCommentsCT Vzhvtgyyhnzg1965Colonoscopy 1965Colorectal Cancer Sdxvbxqil1965FIT-DNA1965FIT1965 FOBT1965 9878Wyelhbjidcrpw1965COVID-19 Vaccine ( season) , 11/19/2020, 10/29/2020Influenza Vaccine (#1)2025Pap Smear5109/09/2021, 07/10/2022, 06/27/20191406Ttohrmify09/08/14524809/20/2024, 07/16/2024, 07/16/2023, Additional history existsCervical Cancer Screening 07/20/2030HPV/Mabccs24Pneumococcal Vaccine: Pediatrics (0 to 5 Years) and At-Risk Patients (6 to 64 Years)Aged OutNo longer eligible based on patient's age to complete this topic Procedures Procedure NamePriorityDate/TimeAssociated DiagnosisCommentsBI MAMMOGRAM SCREENING TOMOSYNTHESIS UBDYBOWVLBpwpjyp20/08/2025 3:50 PM EST Other screening mammogram IGP, APT HPV,RFX 16/18,89Cskfpqq75/08/2025 12:00 AM EST Cervical cancer screening Screening for HPV (human papillomavirus) PAP PRRSMHegkpbt99/28/2022 12:00 AM ESTfrom Last 3 Months or Most Recently Relevant to Health Maintenance Results * Bilateral screening mammogram with tomosynthesis [...] IS VERY IMPORTANT TO YOUR HEALTH. ??THE [employer] GUIDELINES RECOMMEND THAT WOMEN 40 [...] IS VERY IMPORTANT TO YOUR HEALTH. THE [employer] GUIDELINES RECOMMEND THAT WOMEN 40 YEARS OF AGE AND OLDER SHOULD HAVE AMAMMOGRAM EVERY YEAR. A REMINDER LETTER WILL BE SENT AT THE APPROPRIATE TIME. ELECTRONICALLY SIGNED BY: Nicola Zuniga M.D. Authorizing ProviderResult TypeResult StatusBryant Cho MDIMG BI PROCEDURES Final Result * IGP, APT HPV,RFX 16/18,45 (07/20/2025 12:00 AM EST)ComponentValueRef RangeTest MethodAnalysis TimePerformed AtPathologist SignatureDiagnosis:CommentLABC[facility]P Comment:NEGATIVE FOR INTRAEPITHELIAL LESION OR MALIGNANCY.Specimen Adequacy: CommentLABCORPComment: Satisfactory for evaluation. ??Endocervical and/or squamous metaplastic cells (endocervical component) are present. Clinician Provided ICD10:CommentLABCORPComment: Z12.4 Z11.51 Performed By:CommentLABCORPComment:Martine Briseno, Tax Services Professional ([facility])Cyto Comments.LABCORPNote:CommentLABCORPComment: The Pap smear is a screening test designed to aid in the detection of premalignant and malignant conditions of the uterine cervix. ??It is not a diagnostic procedure and should not be used as the sole means of detecting cervical cancer. ??Both false-positive and false-negative reports do occur. Test Methodology:CommentLABCORPComment: This liquid based ThinPrep(R) pap test was interpreted using the mth sense(R) Genius(TM) Cervical Algorithm whole slide imaging system. HPV AptimaNegativeNegativeLABCORPComment: This nucleic acid amplification test detects fourteen high-risk HPV types (16,18,31,33,35,39,45,51,52,56,58,59,66,68) without differentiation. Specimen (Source)Anatomical Location / LateralityCollection Method / Volume Collection TimeReceived TimeVaginal Fluid Narrative [facility] - 07/22/2025 1:07 PM EST Performed at: 01 - [facility] [address] [facility], [place] [id number] Health Aide: Jossy Pandey MD, Phone: ??[phone] Performed at: ??02 - [facility] [address] [facility] [place] [place] [id number] Health Aide: Jossy Pandey MD, Phone: ??[phone] Specimen Comment: No. of containers..01 ThinPrep Vial Authorizing ProviderResult TypeResult StatusBryant Cho MDLAB BLOOD ORDERABLESFinal ResultPerforming OrganizationAddressCity/State/ZIP CodePhone Number [facility] * Pap Smear (07/10/2022 12:00 AM EST)Specimen (Source)Anatomical Location / LateralityCollection Method / VolumeCollection TimeReceived TimeSwabCervical swab / Unknown Narrative Authorizing ProviderResult TypeResult StatusHistorical Provider LAB CYTOLOGY ORDERABLESFinal ResultPerforming OrganizationAddressCity/State/ZIP CodePhone Number [facility] from Last 3 Months or Most Recently Relevant to Health Maintenance Insurance Care Teams Team MemberRelationshipSpecialtyStart DateEnd Date Ron Flynn MD [address] [place] [address] PCP - GeneralFamily Medicine03/07/23
--- OUTSIDE RECORDS SUMMARY | 2025-07-29 08:05 | XMS_ITS | Encounter Summary ---
Author Organization [facility] Address [address] [place] [address] Care Team Providers Care Radiology Transcriptionist Name Role Phone Ron Flynn MD Primary Care Provider [phone] Encounter Details DateTypeDepartmentCare Team (Latest Contact Info)Riseladultu51/08/2025Travel Social History Tobacco UseTypesPacks/DayYears UsedDateSmoking Tobacco: NeverSmokeless Tobacco: NeverAlcohol UseStandard Drinks/WeekCommentsYes2 (1 standard drink = 0.6 oz pure alcohol)CommentsNoSex and Gender InformationValueDate RecordedSex Assigned at BirthNot on fileLegal RzgJinydo59/15/2023 6:48 PM EDTGender Identity Phksif6510/25/2022 6:48 PM EDTSexual OrientationNot on filedocumented as of this encounter Plan of Treatment DateTypeDepartmentCare Team (Latest Contact Info)Asfgigzejlz29/14/2026 3:00 PM ESTOffice Visit [facility] [address] [facility] [address] [place] [address] Bryant Cho MD [address] [place] [address] 07/26/2026 3:30 PM ESTAncillary Procedure [facility] [address] [place] [address] documented as of this encounter Visit Diagnoses Not on filedocumented in this encounter Care Teams Team MemberRelationshipSpecialtyStart DateEnd Date Ron Flynn MD [address] [place] [phone] PCP - GeneralFamily Medicine03/07/23documented as of this encounter
--- OUTSIDE RECORDS SUMMARY | 2025-07-29 08:05 | XMS_ITS | Encounter Summary ---
Author Organization [facility] Address [address] [place] [address] Care Team Providers Care Mechanical Striper Name Role Phone Ron Flynn MD Primary Care Provider [phone] Encounter Details DateTypeDepartmentCare Team (Latest Contact Info)Tfrkbtrujsu74/08/2025Bamboo flowsheet [facility] [address] [place] [address] Bryant Cho MD [address] [facility] [address] [place] [address] Social History Tobacco UseTypesPacks/DayYears UsedDateSmoking Tobacco: NeverSmokeless Tobacco: NeverAlcohol UseStandard Drinks/WeekCommentsYes2 (1 standard drink = 0.6 oz pure alcohol)CommentsNoSex and Gender InformationValueDate RecordedSex Assigned at BirthNot on fileLegal EnaVptizy31/15/2023 6:48 PM EDTGender Identity Jbdxmm2310/25/2022 6:48 PM EDTSexual OrientationNot on filedocumented as of this encounter Plan of Treatment DateTypeDepartmentCare Team (Latest Contact Info)Ovhvfzvhejg01/14/2026 3:00 PM ESTOffice Visit [facility] [place] [facility] [address] [place] [address] Bryant Cho MD [address] [place] [address] 07/26/2026 3:30 PM ESTAncillary Procedure [facility] [place] [facility] [address] [place] [address] documented as of this encounter Visit Diagnoses Not on filedocumented in this encounter Care Teams Team MemberRelationshipSpecialtyStart DateEnd Date Ron Flynn MD [address] [facility] [place] [phone] PCP - GeneralFamily Medicine03/07/23documented as of this encounter
[2025-07-29 08:50] LABS: Hematocrit 38.7 % (36.0-48.0); Hemoglobin 12.9 g/dL (12.0-16.0); Immature Granulocytes Abs Auto 0.01 10^3/uL (0.00-0.03); Immature Granulocytes Pct Auto 0.3 % (0.0-0.5); Lymphocytes Absolute Auto 1.6 10^3/uL (1.2-3.8); Mean Corpuscular HGB Conc 33.3 g/dL (29.9-35.2); Mean Corpuscular Hemoglobin 31.6 pg (26.7-34.0); Mean Corpuscular Volume 94.9 fL (81.0-99.0); Platelet Count 167 10^3/uL (150-450); Red Blood Count 4.08 10^6/uL (4.20-5.40); White Blood Count 3.7 10^3/uL (4.0-11.0)
[2025-07-29 10:14] LABS: Iron 74.0 ug/dL (50.0-170.0)
[2025-07-29 10:20] LABS: Alanine Aminotransferase 21 U/L (14-59); Albumin Globulin Ratio 1.0; Albumin Level 3.5 g/dL (3.4-5.0); Alkaline Phosphatase 92 U/L (46-116); Anion Gap 10.6; Aspartate Amino Transferase 17 U/L (15-37); Blood Urea Nitrogen 19.0 mg/dL (7.0-18.0); Calcium 8.5 mg/dL (8.5-10.1); Carbon Dioxide 27.6 mmol/L (21.0-32.0); Chloride 108 mmol/L (98-107); Cholesterol 220 mg/dL (<=200); Estimated GFR (African America >60 (>=60 mL/min/1.73m^2); Estimated GFR (Non-African Ame 52 (>=60 mL/min/1.73m^2); Free T3 2.64 pg/mL (2.18-3.98); Globulin 3.4 g/dL; Glucose 97 mg/dL (74-106); HDL Cholesterol 67 mg/dL (40-60); Potassium 4.2 mmol/L (3.5-5.1); Sodium 142 mmol/L (136-145); Thyroid Stimulating Hormone 2.183 uIU/mL (0.358-3.740); Total Protein 6.9 g/dL (6.4-8.2); Triglycerides 58 mg/dL (<=150); VLDL CHOLESTEROL 11.6 mg/dL
== END 2025-07-29 08:03 | disposition home or self-care (01) ==
LOC: RAD 08:02
PROVIDERS: PCP Family Medicine; Visit Provider Family Medicine
DX: Z00.00 Encounter for general adult medical examination without abnormal findings (principal); M81.0 Age-related osteoporosis without current pathological fracture; M41.86 Other forms of scoliosis, lumbar region; M85.88 Other specified disorders of bone density and structure, other site
CPT/HCPCS: 36415; 72072; 72110; 77080; 80053; 80061; 83036; 83540; 84436; 84443; 84481; 85025

== ENCOUNTER 2025-08-04 10:35 | Outpatient (OUT) | payer BC, SELFPAY ==
--- OUTSIDE RECORDS SUMMARY | 2025-07-29 12:05 | XMS_ITS ---
Author Organization The [facility] [place] Address [address] [place] [address] Care Team Providers Care Nurse Anesthesia Program Director Name Role Phone David Flynn Primary Care Provider [phone] REASON FOR VISIT lab results Encounters Encounter Location Date Provider Diagnosis [facility] [address] [place] [address] 07/29/2025 David Flynn Autoimmune disease D89.89 Assessments Encounter Date Diagnosis (ICD Code) Assessment Notes Treatment Notes Treatment Clinical Notes Section Notes 07/29/2025 Autoimmune disease (ICD-10 - D89 .89) Plan Of Treatment Pending Test Test Name Order Date CMP - Comprehensive Metabolic Panel 07/13 CBC AUTO DIFF 07/29/2025 Progress Notes * Jia BREWSTER LDOB:1964 (60 yo F)Acc No.[id number]:07/29/2025 Patient:?Jia BREWSTER :1965???Age:60 Y???Sex:FemalePhone:[phone] Address:[address] [place] [address], [phone] Subjective: * Chief Complaints: * L ab results * Medical History: * Surgical History: * Hospitalization/Major Diagno stic Procedure: * Medications: Objective: * Vitals: * Physical Examination: ??? Assessment: * Assessment: 1.?Autoimmune disease - D89.89 (Primary)??? Plan: * Treatment: ?LAB: CMP - Comprehensive Metabolic Panel ?LAB: CBC AUTO DIFF * Procedure Codes: * true * Date:?Generated for Printing/Faxing/eTransmitting on:?08/04/2025 10:40 AM EST
--- OUTSIDE RECORDS SUMMARY | 2025-08-04 10:40 | XMS_ITS | Clinical Summary ---
Author Organization [facility] Address [address] [place], [place] [address] Care Team Providers Care Ict Project Manager Name Role Phone Ron Flynn MD Primary Care Provider [phone] Social History Tobacco UseTypesPacks/DayYears UsedDateSmoking Tobacco: Never Assessed CommentsUnknownSex and Gender InformationValueDate RecordedSex Assigned at Not on fileLegal EraFhdint53/02/2012 8:15 AM ESTGender IdentityNot on fileSexual OrientationNot on file Plan of Treatment Health MaintenanceDue DateLast DoneCommentsAnxiety Tlcjhlgyw92/07/1983Depression Ykkkpoydn98/07/1983HIV Bilzwrzuj50/07/1983Hepatitis C Xjzcqhffo93/07/1983 DTaP,Tdap,Td Vaccine (1 - Tdap)1984Cervical Cancer Brqdlhjcq56/07/1986 Mammogram Adlxufunx79/07/2005CT Yfvjdaktjlck26/07/2010Cologuard (FIT-DNA) 05/19/20102326Kwwmvbgknfz68/07/2010Colorectal Cancer Xmybgklmu83/07/2010Diabetes Qilvejlkk85/07/2010Fecal Occult Blood2010Lipid Iuuayvhue15/07/2010 Wuwujgzrwkfed25/07/2010Pneumococcal Vaccine: 50+ (1 of 1 - PCV)2015 Shingrix Vaccine (1 of 2)2015Covid-19 Vaccine (1 - season) 2025Influenza Vaccine (#1)2025RSV Vaccine (1 - 1-dose 75+ series) 2040 Care Teams Team MemberRelationshipSpecialtyStart DateEnd Ron Flynn MD [facility]03/25/08
--- OUTSIDE RECORDS SUMMARY | 2025-08-04 10:40 | XMS_ITS | Clinical Summary ---
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 Role Phone Ron Flynn MD Primary [...] Discontinued(Therapy completed) Active Problems ProblemNoted DateDiagnosed DateAutoimmune whzxnfm8404/26/2025aden-Walker grade 2 hxocuaqyr31/14/2025Female htvtqxdwu81/14/2025Uterine kibirqri18/14/2025 Encounters DateTypeDepartmentCare MblhGvxsiofulmo93/08/2025 3:30 PM ESTAncillary Procedure [facility] [address] [place] [address] Other screening vdlyvojcl76/08/2025 3:00 PM ESTOffice Visit [facility] [address] [place] [address] Bryant Cho MD Well woman exam with routine gynecological exam (Primary Dx); Cervical cancer screening; Screening for HPV (human papillomavirus); Other screening mammogram; Cystocele with uterine descensus; Rectocele; HERBERT (stress urinary incontinence, female)07/20/2025amboo flowsheet [facility] [address] [place] [phone] Bryant Cho MD 07/20/20255135Yypzfv63/04/3869Xgckob89/01/2025Telephone [facility] [address] [place] [address] Bryant Cho MD from Last 3 Months Family History RelationNameStatusCommentsFatherAliveMotherAlive Social History Tobacco UseTypesPacks/DayYears UsedDateSmoking Tobacco: NeverSmokeless Tobacco: Never Tobacco Cessation:Counseling Given: Not Answered Alcohol UseStandard Drinks/WeekCommentsYes2 (1 standard drink = 0.6 oz pure alcohol)CommentsNoSex and Gender InformationValueDate RecordedSex Assigned at BirthNot on fileLegal OrfYchfre18/15/2023 6:48 PM EDTGender Identity Xpxlld7810/25/2022 6:48 PM EDTSexual OrientationNot on file Last Filed Vital Signs Vital SignReadingTime TakenCommentsBlood Hmysggiv486/7607/20/2025 3:06 PM EST Fekmu781004/26/2025 12:35 PM HVPTtakdemkyra59.7 ??C (98 ??F)04/26/2025 12:35 PM EDTRespiratory Rate--Oxygen Xqjesvazvr78%04/26/2025 12:35 PM EDTInhaled Oxygen Concentration--Uoyima81.1 kg (137 lb)07/20/2025 3:06 PM FROEasbbj754.5 cm (5' 2 )07/10/2022 12:00 PM ESTBody Mass Index25.0607/10/2022 12:00 PM EST Plan of Treatment DateTypeDepartmentCare Team (Latest Contact Info)Sqirvsqgnpu60/14/2026 3:00 PM ESTOffice Visit [facility] [address] [place] [address] Bryant Cho MD [address] [place] [address] 07/26/2026 3:30 PM ESTAncillary Procedure [facility] [address] [place] [address] Health MaintenanceDue DateLast DoneCommentsCT Klbpbkhvrfmv1965Colonoscopy 1965Colorectal Cancer Ftlfnmipo1965FIT-DNA1965FIT1965 FOBT1965 4028Azjraskqboxbl1965Influenza Vaccine (#1)2025Pap Smear 5109/09/2021, 07/10/2022, 06/27/20193163Bbbyhzypv62/08/71578309/20/2024, 07/16/2024, 07/16/2023, Additional history existsCervical Cancer Screening 07/20/2030HPV/Nqqcri30Pneumococcal Vaccine: Pediatrics (0 to 5 Years) and At-Risk Patients (6 to 64 Years)Aged OutNo longer eligible based on patient's age to complete this topic Procedures Procedure NamePriorityDate/TimeAssociated DiagnosisCommentsBI MAMMOGRAM SCREENING TOMOSYNTHESIS KTDSJVRCQNggawyi41/08/2025 3:50 PM EST Other screening mammogram IGP, APT HPV,RFX 16/18,57Tyalmgg67/08/2025 12:00 AM EST Cervical cancer screening Screening for HPV (human papillomavirus) PAP DJEBZEddezxn41/28/2022 12:00 AM ESTfrom Last 3 Months or [...] IS VERY IMPORTANT TO YOUR HEALTH. ??THE [employer] GUIDELINES RECOMMEND THAT WOMEN 40 [...] IS VERY IMPORTANT TO YOUR HEALTH. THE [employer] GUIDELINES RECOMMEND THAT WOMEN 40 YEARS OF AGE AND OLDER SHOULD HAVE AMAMMOGRAM EVERY YEAR. A REMINDER LETTER WILL BE SENT AT THE APPROPRIATE TIME. ELECTRONICALLY SIGNED BY: Nicola Zuniga M.D. Authorizing ProviderResult TypeResult StatusBrflorentin Cho MDIMJ Luis BI PROCEDURES Final Result * IGP, APT HPV,RFX 16/18,45 (07/20/2025 12:00 AM EST)ComponentValueRef RangeTest MethodAnalysis TimePerformed AtPathologist SignatureDiagnosis:CommentLABCORP Comment:NEGATIVE FOR INTRAEPITHELIAL LESION OR MALIGNANCY.Specimen Adequacy: CommentLABCORPComment: Satisfactory for evaluation. ??Endocervical and/or squamous metaplastic cells (endocervical component) are present. Clinician Provided ICD10:CommentLABCORPComment: Z12.4 Z11.51 Performed By:CommentLABCORPComment:Martine Briseno, Fbi Investigator ([facility])Cyto Comments.LABCORPNote:CommentLABCORPComment: The Pap smear is a screening test designed to aid in the detection of premalignant and malignant conditions of the uterine cervix. ??It is not a diagnostic procedure and should not be used as the sole means of detecting cervical cancer. ??Both false-positive and false-negative reports do occur. Test Methodology:CommentLABCORPComment: This liquid based ThinPrep(R) pap test was interpreted using the [employer](R) Genius(TM) Cervical Algorithm whole slide imaging system. HPV AptimaNegativeNegativeLABCORPComment: This nucleic acid amplification test detects fourteen high-risk HPV types (16,18,31,33,35,39,45,51,52,56,58,59,66,68) without differentiation. Specimen (Source)Anatomical Location / LateralityCollection Method / Volume Collection TimeReceived TimeVaginal Fluid Narrative [facility] - 07/22/2025 1:07 PM EST Performed at: 01 - [address] [place] ??[id number] Investigations Chief: Jossy Pandey MD, Phone: ??[phone] Performed at: ??02 - [facility] [address] ??[id number] Investigations Chief: Jossy Pandey MD, Phone: ??[phone] Specimen Comment: No. of containers..01 ThinPrep Vial [...] Maintenance Insurance Care Teams Team MemberRelationshipSpecialtyStart DateEnd Ron Flynn MD [address] [place] [address] PCP - GeneralFamily Medicine03/07/23
--- OUTSIDE RECORDS SUMMARY | 2025-08-04 10:40 | XMS_ITS | Patient Health Record ---
Author Organization [facility] [place] Address [address] [place] [address] Care Team Providers Care Cnmt Name Role Phone David Rice Primary Care Provider [phone] Allergies No Known Allergies Results Component Value Reference Range Notes XR thoracic spine 3V Reviewed date:07/29/2025 05:09:09 PM Interpretation: Performing Lab: Notes/Report: Source Facility: [place] [address] XRay Report Signed Patient: JIA BREWSTER MR#: [id number] : 1965 Acct:[id number] Age/Sex: 60 / F ADM Date: 07/29/25 Loc: RAD Attending Dr: Ron Rice M.D. Ordering Physician: Ron Rice M.D. Date of Service: 07/29/25 Procedure(s): XR thoracic spine 3V Accession Number(s): [id number] cc: Ron Rice M.D. [address] [address] Patient Name: JIA BREWSTER MRN: [id number] date: 1965 Sex: F Assigned Patient Location: RAD Current Patient Location: RAD Accession/Order Number: [id number] Exam Date: 07/29/2025 08:10 Report Date: 07/29/2025 09:34 At the request of: RON RICE MD Procedure: XR lumbar spine min 4V CLINICAL DATA: Back pain. History of scoliosis. THORACIC SPINE - 3 views COMPARISON: None AP, lateral and swimmer's views were obtained. There is reverse S-shaped thoracic scoliotic curvature. There is no evidence of compression fracture or displacement. The pedicles are intact. There is minimal endplate spurring. There are no paraspinal soft tissue abnormalities. XR/XR thoracic spine 3V IMPRESSION: SCOLIOSIS AND MINIMAL DEGENERATIVE CHANGE. LUMBAR SPINE - 4 views COMPARISON: None AP, lateral and both oblique views were obtained. There is thoracolumbar dextroscoliotic curvature. No displacement is seen on the lateral view. There are no acute compression fractures. No disproportionate disc space narrowing is identified. There is a Schmorl's node at superior endplate of T12. There is minimal endplate spurring and mild facet disease. No pars defects are identified. SI joints are intact. No paraspinal soft tissue abnormalities are noted. IMPRESSION: SCOLIOSIS AND MINOR DEGENERATIVE CHANGE. NO ACUTE BONY FINDINGS. Impression dictated by: Jessica Neil M.D. 07/29/2025 9:34 AM Dictation Location: [facility]ITALC[facility] Electronically authenticated by: [id number] Y Date: 07/29/2025 09:34 Dictated By: Jessica Neil M.D. Signed By: 07/29/25 0937 DD/ 0934 TD/TT: Road Cleaner: CBC AUTO DIFF Reviewed date:07/29/2025 05:09:09 PM Interpretation: Performing Lab: Notes/Report: [facility] , White Blood Count 3.7 4.0-11.0 10 3/uL Red Blood Count4.084.20-5.40 10 6/dDYxbfhyonog12.912.0-16.0 g/dABxaabrahqu59.7 36.0-48.0 %Mean Corpuscular Wnvaop71.981.0-99.0 fLMean Corpuscular Hemoglobin 31.626.7-34.0 pgMean Corpuscular HGB Conc33.329.9-35.2 g/dLRed Cell Distribution Width12.311.0-15.0 %Platelet Pyaom414308-587 10 3/uLMean Platelet Volume9.99.5- 13.5 fLNeutrophils Percent Auto48.543.0-75.0 %Lymphocytes Percent Auto42.220.5- 60.0 %Monocytes Percent Auto6.81.7-12.0 %Eosinophils Percent Auto1.90.9-7.0 % Basophils Percent Auto0.30.2-2.0 %Immature Granulocytes Pct Auto0.30.0-0.5 % Neutrophils Absolute Auto1.81.4-6.5 10 3/uLLymphocytes Absolute Auto1.61.2-3.8 10 3/uLMonocytes Absolute Auto0.30.3-0.8 10 3/uLEosinophils Absolute Auto0.10.0- 0.7 10 3/uLBasophils Absolute Auto0.00.0-0.1 10 3/uLImmature Granulocytes Abs Auto0.010.00-0.03 10 3/uLPerforming Lab:see note - [facility] FREE T3 Reviewed date:07/29/2025 05:09:09 PM Interpretation: Performing Lab: Notes/Report: [facility] ,Free T32.642.18-3.98 pg/mLPerforming Lab:see note - [facility] GLYCOHEMOGLOBIN A1C Reviewed date:07/29/2025 05:09:09 PM Interpretation: Performing Lab: Notes/Report: [facility] ,Glycohemoglobin A1C5.84.5-6.2 % ACTION SUGGESTED > 7.0 ADA THERAPEUTIC TARGET < 7.0 ADA RECOMMENDED LIMIT 4.0 - 6.0 Estimated Average Kciaiii424Frylpkpxmw Lab:see note - [facility] LB IRON Reviewed date:07/29/2025 05:09:09 PM Interpretation: Performing Lab: Notes/Report: [facility] ,Iron74.050.0-170.0 ug/dLPerforming Lab:[facility] LIPID PROFILE Reviewed date:07/29/2025 05:09:09 PM Interpretation: Performing Lab: Notes/Report: [facility] ,Pqccyealalwff31<=150 mg/oPNuobiswmusp247<=200 mg/dLHDL Mrxcznjzwxx0566-98 mg/dL <40 mg/dl - HIGH CARDIOVASCULAR RISK > or =60 mg/dl - LOW CARDIOVASCULAR RISK LDL Cholesterol Nunxfbyyxe251.0 130-159 mg/dl BORDERLINE HIGH >190 mg/dl VERY HIGH 100-129 mg/dl NEAR OR ABOVE OPTIMAL 160-189 mg/dl HIGH <100 mg/dl OPTIMAL VLDL ZRWREGBKINU14.6Chol HDL Ratio3.3 3.3 - 4.4 LOW RISK 7.1 - 11.0 MODERATE RISK 4.4 - 7.1 AVERAGE RISK >11.0 HIGH RISK Performing Lab:see note - [facility] LBPROF 14(COMP METB) Reviewed date:07/29/2025 05:09:09 PM Interpretation: Performing Lab: Notes/Report: [facility] ,Khmixr077492-906 mmol/LPotassium4.23.5-5.1 mmol/NTmhfgodi00566-927 mmol/LCarbon Meckcxv22.621.0-32.0 mmol/LAnion Gap10.2Yhuwaqs3182-999 mg/dLBlood Urea Nitrogen 19.07.0-18.0 mg/dLCreatinine1.070.55-1.02 mg/dLEstimated GFR ( Casandra>60 >=60 mL/min/1.73m 2Estimated GFR (Non- Ame52>=60 mL/min/1.73m 2BUN Creatinine Ratio17.8Tlrxckj7.58.5-10.1 mg/dLBilirubin Total0.30.2-1.0 mg/dL Aspartate Amino Tihyggxqinl5617-07 U/LAlanine Ecmikokshcvdjxla1398-48 U/L Alkaline Kkyvlkatski6867-935 U/LTotal Protein6.96.4-8.2 g/dLAlbumin Level3.53.4- 5.0 g/dLGlobulin3.4Albumin Globulin Ratio1.0Performing Lab:see note - [facility] LBT4 Reviewed date:07/29/2025 05:09:09 PM Interpretation: Performing Lab: Notes/Report: [facility] ,T4 Thyroxine5.904.80-13.90 ug/dLPerforming Lab:see [facility] LBTSH Reviewed date:07/29/2025 05:09:09 PM Interpretation: Performing Lab: Notes/Report: [facility] ,Thyroid Stimulating Hormone2.1830.358-3.740 uIU/mLPerforming Lab:see noteML - [facility] LBXR lumbar spine min 4V Reviewed date:07/29/2025 05:09:09 PM Interpretation: Performing Lab: Notes/Report: Source Facility: [facility]-[address] [place] [address] [place] [address] XRay Report Signed Patient: JIA BREWSTER MR#: [id number] : 1965 Acct:[id number] Age/Sex: 60 / F ADM Date: 07/29/25 Loc: RAD Attending Dr: Ron Rice M.D. Ordering Physician: Ron Rice M.D. Date of Service: 07/29/25 Procedure(s): XR lumbar spine min 4V Accession Number(s): [id number] cc: Ron Rice M.D. [facility] [place] [address] Patient Name: JIA BREWSTER MRN: [id number] date: 1965 Sex: F Assigned Patient Location: [facility] Current Patient Location: [facility] Accession/Order Number: [id number] Exam Date: 07/29/2025 08:10 Report Date: 07/29/2025 09:34 At the request of: RON RICE MD Procedure: XR lumbar spine min 4V CLINICAL DATA: Back pain. History of scoliosis. THORACIC SPINE - 3 views COMPARISON: None AP, lateral and swimmer's views were obtained. There is reverse S-shaped thoracic scoliotic curvature. There is no evidence of compression fracture or displacement. The pedicles are intact. There is minimal endplate spurring. There are no paraspinal soft tissue abnormalities. XR/XR lumbar spine min 4V IMPRESSION: SCOLIOSIS AND MINIMAL DEGENERATIVE CHANGE. LUMBAR SPINE - 4 views COMPARISON: None AP, lateral and both oblique views were obtained. There is thoracolumbar dextroscoliotic curvature. No displacement is seen on the lateral view. There are no acute compression fractures. No disproportionate disc space narrowing is identified. There is a Schmorl's node at superior endplate of T12. There is minimal endplate spurring and mild facet disease. No pars defects are identified. SI joints are intact. No paraspinal soft tissue abnormalities are noted. IMPRESSION: SCOLIOSIS AND MINOR DEGENERATIVE CHANGE. NO ACUTE BONY FINDINGS. Impression dictated by: Jessica Neil M.D. 07/29/2025 9:34 AM Dictation Location: [place] [address] Electronically authenticated by: [id number] Y Date: 07/29/2025 09:34 Dictated By: Jessica Neil M.D. Signed By: 07/29/2537 DD/ 3 TD/TT: Road Cleaner: Reason For Referral No Information Social History Tobacco Use: Social History Observation Description Date Details (start date - stop date) Never Smoker NA - NA Tobacco Use/Smoking Question Answer Notes Patient is a nonsmoker Alcohol Screen (Audit-C) Question Answer Notes Did you have a drink containing alcohol in the p ast year? Yes How often did you have 6 or more drinks on one occasion in the past year?Never (0 point)How many drinks did you have on a typical day when you were drinking in the past year?1 or 2 drinks (0 point)How often did you have a drink containing alcohol in the past year?Weekly (3 points)Cplfko4CacsxmsixmteanOqffszxuMKUNY-S (Standard) Question Answer Notes Did you have [...] Status W/U Status Risk Notes Problem Osteopenia (251904356) Osteopenia (M85.80 ) ActiveconfirmedProblemVaricose vein (86600658)Varicose vein (I86.8)Active confirmedProblemWell adult (023245012)Well adult (Z00.00)ActiveconfirmedProblem Scoliosis (842321192)Scoliosis (M41.9)ActiveconfirmedProblemAcute sinusitis (90096771)Acute sinus infection (J01.90)ActiveconfirmedProblemAutoimmune disease (33366373)Autoimmune disease (D89.89)ActiveconfirmedProblemCOVID-19 (906935933) COVID-19 (U07.1)Activeconfirmed Vital Signs Blood pressure diastolic 72 mm Hg 07/15/2025 Tagifb25 in07/15/2025lood pressure wcdgixnm172 mm Hg07/15/20250858Tuqvdk358.0 lbs 07/15/2025BMI25.24 kg/m207/15/2025 Encounters Encounter Location Date Provider Diagnosis [facility] [address] [place] [address] 07/15/2025 David Rice Well adult Z00.00 an d Scoliosis M41.9 [facility] [address] [place] [address] 07/29/2025 David Rice Autoimmune disease D89.89 Assessments Encounter Date Diagnosis (ICD Code) Assessment Notes Treatment Notes Treatment Clinical Notes Section Notes 07/15/2025 Well adult (ICD-10 - Z00.00) 07/15/2025Scoliosis (ICD-10 - M41.9)07/29/2025utoimmune disease (ICD-10 - D89.89) Plan Of Treatment Pending Test Test Name Order Date CMP (COMPLETE METABOLIC PANEL) 3 HEMOGLOBIN A1C (GLYCO) 07/15/2025 HEMOGLOBIN A1C (GLYCO) 02/09/2023 IRON, TOTAL 07/15/2025 IRON, TOTAL 02/09/2023 LIPID PANEL (CHOL/TRIG/HDL/LDL) 02/10/20 23 LIPID PANEL (CHOL/TRIG/HDL/LDL) 07/15/20 25 CBC WITH DIFF (EXP 06/2025) 02/09/2023 CMP - Comprehensive Metabolic Panel 07/13 CBC AUTO DIFF 07/29/2025 XR DEXA BONE DENSITY 07/15/2025 XR LSPINE MIN 4 VIEWS 07/15/2025 THYROID PANEL (T4/TSH/FREE T3) 3 THYROID PANEL (T4/TSH/FREE T3) 5 MM screening mammo BI 07/15/2025 CMP (COMP MET GREEN) w/eGFR CKD-EPI 2024 CBC WITH DIFF 07/15/2025 Insurance Providers Payer Name Payer Address Payer Phone Subscriber Number Group Number Insured Name Patient Relationship to Insured Coverage Start Date Coverage End Date [employer] PPO PLUS LOCAL PLAN [address] [place] [address] [id number] Blair Brewster Spouse - patient is the spouse of the insured Medical (General) History Medical History History ICD Code Zoster without complications B02.9 Erythema nodosum L52 Varicose vein I86.8 Autoimmune disease D89.89 Osteopenia M85.80 Shingles B02.9 Erythema nodosum L52 Surgical History Surgery Date(Month/Year) Lipoma on right leg and left hip
[2025-08-04 11:01] LABS: Hematocrit 38.4 % (36.0-48.0); Hemoglobin 12.9 g/dL (12.0-16.0); Immature Granulocytes Abs Auto 0.01 10^3/uL (0.00-0.03); Immature Granulocytes Pct Auto 0.2 % (0.0-0.5); Lymphocytes Absolute Auto 1.9 10^3/uL (1.2-3.8); Mean Corpuscular HGB Conc 33.6 g/dL (29.9-35.2); Mean Corpuscular Hemoglobin 31.2 pg (26.7-34.0); Mean Corpuscular Volume 93.0 fL (81.0-99.0); Platelet Count 172 10^3/uL (150-450); Red Blood Count 4.13 10^6/uL (4.20-5.40); White Blood Count 4.5 10^3/uL (4.0-11.0)
[2025-08-04 11:30] LABS: Alanine Aminotransferase 23 U/L (14-59); Albumin Globulin Ratio 1.1; Albumin Level 3.6 g/dL (3.4-5.0); Alkaline Phosphatase 85 U/L (46-116); Anion Gap 14.0; Aspartate Amino Transferase 13 U/L (15-37); Blood Urea Nitrogen 19.0 mg/dL (7.0-18.0); Calcium 8.7 mg/dL (8.5-10.1); Carbon Dioxide 25.3 mmol/L (21.0-32.0); Chloride 108 mmol/L (98-107); Estimated GFR (African America >60 (>=60 mL/min/1.73m^2); Estimated GFR (Non-African Ame 57 (>=60 mL/min/1.73m^2); Globulin 3.4 g/dL; Glucose 101 mg/dL (74-106); Potassium 4.3 mmol/L (3.5-5.1); Sodium 143 mmol/L (136-145); Total Protein 7.0 g/dL (6.4-8.2)
== END 2025-08-04 10:36 | disposition home or self-care (01) ==
LOC: LAB 10:37
PROVIDERS: PCP Family Medicine; Visit Provider Family Medicine
DX: D89.89 Other specified disorders involving the immune mechanism, not elsewhere classified (principal)
CPT/HCPCS: 36415; 80053; 85025